=== PATIENT | male | born 1995 | race Caucasian/White ===

== ENCOUNTER 2020-10-05 16:25 | Emergency (ER) | payer MEDICAID ==
[~2020-10-05] VITALS: Ht 175.3 cm; Wt 80.0 kg
[2020-10-05 17:25] VITALS: BP 129/86
== END 2020-10-05 17:36 | disposition home or self-care (01) ==
LOC: ER 16:25
DX: T75.4XXA Electrocution, initial encounter (principal); T30.0 Burn of unspecified body region, unspecified degree; T79.9XXA Unspecified early complication of trauma, initial encounter
CPT/HCPCS: 99281